=== PATIENT | male | born 1955 | race Caucasian/White ===

== ENCOUNTER 2016-09-06 11:54 | Day surgery (SDC) | payer OTHER ==
[~2016-09-06] VITALS: Ht 177.8 cm; Wt 86.2 kg
[~2016-09-06 11:54] MED LIST: CALCIUM ACETAT667 M2 PO; DIOVAN80 MG PO; FERREX 150150 MG PO; LASIX20 MG PO; NORVASC10 MG PO; RENAL-VITE TAB0.8 MG PO; VITAMIN D31000 UNIT PO; VOL-CARE RX TA1 EACH PO
[2016-09-06 14:15] LABS: METH RESISTANT S AUREUS PCR NEGATIVE (NEGATIVE); PROBE CHECK PASS; SPECIMEN PROCESSING CONTROL PASS
== END 2016-09-07 15:15 | disposition home or self-care (01) ==
LOC: CATH 11:54
PROVIDERS: Surgery
DX: T82.858A Stenosis of other vascular prosthetic devices, implants and grafts, initial encounter (principal); Y83.2 Surgical operation with anastomosis, bypass or graft as the cause of abnormal reaction of the patient, or of later complication, without mention of misadventure at the time of the procedure; I12.0 Hypertensive chronic kidney disease with stage 5 chronic kidney disease or end stage renal disease; E11.22 Type 2 diabetes mellitus with diabetic chronic kidney disease; N18.6 End stage renal disease; Z99.2 Dependence on renal dialysis; E78.5 Hyperlipidemia, unspecified; Z83.3 Family history of diabetes mellitus; Z82.49 Family history of ischemic heart disease and other diseases of the circulatory system
CPT/HCPCS: 87641; C1725; C1769; C1894; J1644; J2250; J3010

== ENCOUNTER 2018-01-08 14:40 | Day surgery (SDC) | payer OTHER ==
[2018-01-08] MEDS ORDERED: vitamin B PO (15:05)
== END 2018-01-08 17:35 | disposition home or self-care (01) ==
LOC: CATH 14:40
PROVIDERS: Surgery
DX: T82.868A Thrombosis due to vascular prosthetic devices, implants and grafts, initial encounter (principal); Y83.2 Surgical operation with anastomosis, bypass or graft as the cause of abnormal reaction of the patient, or of later complication, without mention of misadventure at the time of the procedure; I12.0 Hypertensive chronic kidney disease with stage 5 chronic kidney disease or end stage renal disease; N18.6 End stage renal disease; Z99.2 Dependence on renal dialysis
CPT/HCPCS: 82948; 87641; C1725; C1757; C1769; C1874; C1894; C2628; J0690; J1644; J2250; J3010; S0020

== ENCOUNTER 2018-03-31 11:12 | Day surgery (SDC) | payer OTHER ==
[~2018-03-31 11:12] MED LIST changes: +vitamin B PO
== END 2018-03-31 15:15 | disposition home or self-care (01) ==
LOC: CATH 11:12
PROVIDERS: Surgery
DX: T82.818A Embolism due to vascular prosthetic devices, implants and grafts, initial encounter (principal); Y83.2 Surgical operation with anastomosis, bypass or graft as the cause of abnormal reaction of the patient, or of later complication, without mention of misadventure at the time of the procedure; N18.6 End stage renal disease; Z99.2 Dependence on renal dialysis
CPT/HCPCS: 82948; 87641; C1725; C1757; C1769; C1894; J0690; J1644; J2250; J3010; S0020